=== PATIENT | female | born 1950 ===

== ENCOUNTER 2017-09-11 12:48 | Emergency (ER) | payer OTHER ==
[2017-09-11] MEDS ORDERED: Sodium Chloride 0.9% 1,000 ML IV ONE (14:09)
--- NOTE | 2017-09-11 14:09 | C.PDOC ---
History Of Present Illness 67 years old female with history of pancreatic cyst and gastritis presents to ED with complaints of epigastric abdominal pain associated with nausea and 1 episode of vomiting after eating lunch today. Patient reports that later she started experiencing a headache and felt weak. Patient also reports last bowl movement was loose. Denies fever or chills. Patient states she took zantac with no relief. Time Seen by Provider: 09/11/17 13:06 Chief Complaint (Nursing): Fever History Per: Patient History/Exam Limitations: no limitations Onset/Duration Of Symptoms: Hrs Current Symptoms Are (Timing): Still Present Context: Food Location Of Pain/Discomfort: Epigastric Radiation Of Pain To:: None Quality Of Discomfort: "Pain" Associated Symptoms: Nausea, Vomiting (1 episode), Other (headache). denies: Fever, Chills Exacerbating Factors: None Alleviating Factors: None Last Bowel Movement: Today (Loose bowel movement) Recent travel outside of the [place]: No Past Medical History Reviewed: Historical Data, Nursing Documentation, Vital Signs Vital Signs: Last Vital Signs Temp 97.8 F 09/11/17 15:59 Pulse 55 L 09/11/17 15:59 Resp 18 09/11/17 15:59 BP 148/82 09/11/17 15:59 Pulse Ox 100 09/11/17 16:09 - Medical History PMH: HTN Comment Only: Dementia ("FORGETFUL") Family History: States: Unknown Family Hx - Social History Hx Tobacco Use: No Hx Alcohol Use: No Hx Substance Use: No - Immunization History Hx Tetanus Toxoid Vaccination: No Hx Influenza Vaccination: Yes Hx Pneumococcal Vaccination: No Review Of Systems Constitutional: Negative for: Fever, Chills Gastrointestinal: Positive for: Nausea, Vomiting (1 episode), Abdominal Pain ( epigastric), Other (last bowl movement was loose) Neurological: Positive for: Headache. Negative for: Weakness, Numbness Physical Exam - Physical Exam Appears: Well, Non-toxic, No Acute Distress Skin: Normal Color, Warm, Dry Head: Atraumatic, Normacephalic Eye(s): bilateral: Normal Inspection, PERRL, EOMI Oral Mucosa: Moist Neck: Supple Chest: Symmetrical Cardiovascular: Rhythm Regular Respiratory: Normal Breath Sounds, No Decreased Breath Sounds, No Rales, No Rhonchi, No Wheezing Gastrointestinal/Abdominal: Bowel Sounds, Soft, Tenderness (Mild to epigastric area), No Distention, No Guarding, No Rebound, No Ascites Back: Normal Inspection, No CVA Tenderness, No Vertebral Tenderness, No Paraspinal Tenderness Extremity: Bilateral: Atraumatic, Normal Color And Temperature, Normal ROM Neurological/Psych: Oriented x3, Normal Speech, Other (no focal deficits ) ED Course And Treatment - Laboratory Results Result Diagrams: 09/11/17 14:27 09/11/17 14:27 O2 Sat by Pulse Oximetry: 100 (RA) Pulse Ox Interpretation: Normal - CT Scan/US CT Abdomen & Pelvis Other Rad Studies (CT/US): Read By Radiologist, Radiology Report Reviewed CT/US Interpretation: CT abdomen and pelvis. History: Abdominal pain. Pancreatic cyst. Comparison: CT scan dated 07/05/2017. Technique: Multiple contiguous axial images were performed through the abdomen and pelvis with the use of intravenous contrast. Subsequently, sagittal and coronal reformatted images were obtained. This CT exam was performed using one or more of the following dose reduction techniques: Automated exposure control, adjustment of the mA and/or kV according to patient size, and/or use of iterative reconstruction technique. Findings: Atelectasis within the lung bases and lingula. No pleural or pericardial effusion. Fatty infiltration of the liver. Persistent 8 x 5 mm calcification within the posterior right hepatic lobe re- identified. Gallbladder is preserved. Splenic cleft. Spleen is otherwise preserved. Adrenal glands are preserved. Again identified is a prominent low- attenuation lesion at the level of the pancreatic head measuring up to 1.3 x 1.2 centimeters demonstrating a postcontrast Hounsfield attenuation units of 29 , indeterminate. Smile hiatal hernia with some gastric wall thickening. Clinical correlation. Right kidney: Midpole low-attenuation lesion in the right kidney measuring 9 millimeters demonstrating a Hounsfield unit attenuation of 41, indeterminate. Mild fullness of the right renal collecting system and ureter. Left Kidney: Mild fullness of the left renal collecting system and ureter. Distended urinary bladder. Prior hysterectomy. Scattered areas of colonic thickening and/or underdistention seen at the level of the mid ascending colon, distal transverse colon, descending colon, and sigmoid colon, nonspecific. Mild fecal retention in the colon. Clinical correlation. Appendix not well delineated, possibly imaged on series 3, images 138 through 150, grossly preserved. Few shotty para-aortic and inguinal lymph nodes. Few shotty mesenteric lymph nodes. Degenerative changes in the visualized osseous structures. Sclerosis of the bilateral SI joints. Impression: 1. Again identified is a prominent low density splenic lesion at the pancreatic head, likely cystic. This is of uncertain clinical etiology. Differential diagnosis includes a small cystic neoplasm versus sequelae of prior pancreatitis such as a dilated side duct radical or small pseudocyst versus additional etiology. 2. Prominent fatty infiltration of the liver with persistent 8x 5 mm calcification seen within the posterior right hepatic lobe. 3. Smile hiatal hernia with some gastric wall thickening. Clinical correlation. 4. Midpole low-attenuation lesion in the right kidney measuring 9 millimeters demonstrating a Hounsfield unit attenuation of 41, indeterminate. Mild fullness of the right renal collecting system and ureter. Mild fullness of the left renal collecting system and ureter. 5. Distended urinary bladder. 6. Prior hysterectomy. 7. Scattered areas of colonic thickening and/or underdistention seen at the level of the mid ascending colon, distal transverse colon, descending colon, and sigmoid colon, nonspecific. Mild fecal retention in the colon. Clinical correlation. Medical Decision Making Medical Decision Making: Impression: upper abdominal pain, vomiting Plan: * Labs * CT A.P * IV NS, Reglan, Pepcid Progress : labs reviewed. CT see full report. On re-evaluation patient resting on stretcher and reports feeling better. She has no fever and abdomen remains soft. I discussed results of labs and CT with her. Recommend supportive treatment. Rx given. Advise follow up with Dr Osborne. Disposition Counseled Patient/Family Regarding: Studies Performed, Diagnosis, Need For Followup - Disposition Referrals: Talha Osborne MD [Medical Doctor] - Disposition: HOME/ ROUTINE Disposition Time: 16:07 Condition: IMPROVED Additional Instructions: Prescripcin enviada a la farmacia de Parenti Micki lquidos descansando y pruebe nessa dieta blanda hasta que los sntomas se resuelvan Por favor, sunita un seguimiento con ennis mdico para ms cuidado Prescriptions: Ranitidine HCl 150 mg PO DAILY #15 tablet Instructions: Hiatal Hernia (DC) Forms: [employer] (Kinyarwanda) Print Language: YAKUT - POA Present On Arrival: None - Clinical Impression Clinical Impression: Epigastric abdominal pain, Hiatal hernia - PA / [employer] / Resident Statement MD/DO has reviewed & agrees with the documentation as recorded. - Scribe Statement The provider has reviewed the documentation as recorded by the Scribe Vishal Galo All medical record entries made by the Fatouibalee were at my direction and personally dictated by me. I have reviewed the chart and agree that the record accurately reflects my personal performance of the history, physical exam, medical decision making, and the department course for this patient. I have also personally directed, reviewed, and agree with the discharge instructions and disposition.
[2017-09-11 14:30] LABS: BASO % 0.3 % (0.0-2.0); EOS % 0.2 % (0.0-4.0); LYMPH % 11.5 % (20.0-40.0); MEAN CELL VOLUME 80.3 fL (81.0-99.0); MEAN CORPUSCULAR HEMOGLOBIN 27.9 pg (27.0-31.0); MEAN CORPUSCULAR HGB CONC 34.7 g/dL (33.0-37.0); MEAN PLATELET VOLUME 8.1 fL (7.2-11.7); MONO # 0.2 K/uL (0.0-0.8); MONO % 2.5 % (0.0-10.0); NEUT # 7.6 K/uL (1.8-7.0); NEUT % 85.5 % (50.0-75.0); RBC 4.67 Mil/uL (3.80-5.20); RED CELL DISTRIBUTION WIDTH 14.8 % (11.5-14.5); WHITE BLOOD COUNT 8.8 K/uL (4.8-10.8)
[2017-09-11 14:34] LABS: SQUAMOUS EPITHIAL 1 /hpf (0-5); URINE BILIRUBIN NEGATIVE (NEGATIVE); URINE BLOOD 1+ (NEGATIVE); URINE CLARITY Clear (Clear); URINE COLOR Straw (YELLOW); URINE GLUCOSE (UA) NORMAL (Normal); URINE LEUKOCYTE ESTERASE NEG Leu/uL (Negative); URINE PROTEIN NEGATIVE (NEGATIVE); URINE UROBILINOGEN NORMAL mg/dL (0.2-1.0)
[2017-09-11 14:42] LABS: ALB/GLOB RATIO 1.2 (1.0-2.1); ALBUMIN 4.3 g/dL (3.5-5.0); ALT/SGPT 38 U/L (9-52); AST/SGOT 32 U/L (14-36); BLOOD UREA NITROGEN 12 mg/dL (7-17); CALCIUM 8.8 mg/dl (8.6-10.4); GFR AFRICAN-AMERICAN > 60; GFR NON-AFRICAN AMERICAN > 60; LIPASE 58 U/L (23-300)
[2017-09-11] MEDS ORDERED: Iohexol 300 100 ML IJ ONE (14:49)
--- NOTE | 2017-09-11 15:50 | CT ---
CT abdomen and pelvis History: Abdominal pain. Pancreatic cyst. Comparison: CT scan dated 07/05/2017 Technique: Multiple contiguous axial images were performed through the abdomen and pelvis with the use of intravenous contrast. Subsequently, sagittal and coronal reformatted images were obtained. This CT exam was performed using one or more of the following dose reduction techniques: Automated exposure control, adjustment of the mA and/or kV according to patient size, and/or use of iterative reconstruction technique. Findings: Atelectasis within the lung bases and lingula. No pleural or pericardial effusion. Fatty infiltration of the liver. Persistent 8 x 5 mm calcification within the posterior right hepatic lobe re- identified. Gallbladder is preserved. Splenic cleft. Spleen is otherwise preserved. Adrenal glands are preserved. Again identified is a prominent low-attenuation lesion at the level of the pancreatic head measuring up to 1.3 x 1.2 centimeters demonstrating a postcontrast Hounsfield attenuation units of 29, indeterminate. Smile hiatal hernia with some gastric wall thickening. Clinical correlation. Right kidney: Midpole low-attenuation lesion in the right kidney measuring 9 millimeters demonstrating a Hounsfield unit attenuation of 41, indeterminate. Mild fullness of the right renal collecting system and ureter. Left Kidney: Mild fullness of the left renal collecting system and ureter. Distended urinary bladder. Prior hysterectomy. Scattered areas of colonic thickening and/or underdistention seen at the level of the mid ascending colon, distal transverse colon, descending colon, and sigmoid colon, nonspecific. Mild fecal retention in the colon. Clinical correlation. Appendix not well delineated, possibly imaged on series 3, images 138 through 150, grossly preserved. Few shotty para-aortic and inguinal lymph nodes. Few shotty mesenteric lymph nodes. Degenerative changes in the visualized osseous structures. Sclerosis of the bilateral SI joints. Impression: 1. Again identified is a prominent low density splenic lesion at the pancreatic head, likely cystic. This is of uncertain clinical etiology. Differential diagnosis includes a small cystic neoplasm versus sequelae of prior pancreatitis such as a dilated side duct radical or small pseudocyst versus additional etiology. 2. Prominent fatty infiltration of the liver with persistent 8x 5 mm calcification seen within the posterior right hepatic lobe. 3. Smile hiatal hernia with some gastric wall thickening. Clinical correlation. 4. Midpole low-attenuation lesion in the right kidney measuring 9 millimeters demonstrating a Hounsfield unit attenuation of 41, indeterminate. Mild fullness of the right renal collecting system and ureter. Mild fullness of the left renal collecting system and ureter. 5. Distended urinary bladder. 6. Prior hysterectomy. 7. Scattered areas of colonic thickening and/or underdistention seen at the level of the mid ascending colon, distal transverse colon, descending colon, and sigmoid colon, nonspecific. Mild fecal retention in the colon. Clinical correlation.
[2017-09-11 16:00] VITALS: BP 148/82; TEMP 97.8
[2017-09-11 16:41] VITALS: PULSE 65; RESP 17; O2SAT 99
== END 2017-09-11 16:40 | disposition home or self-care (01) ==
LOC: C.ER 12:48
DX: K44.9 Diaphragmatic hernia without obstruction or gangrene (principal); R10.13 Epigastric pain; I10 Essential (primary) hypertension
CPT/HCPCS: 74177; 80053; 81001; 83690; 85025; 96361; 96374; 96375; 99284; J2765; J7040; Q9967